=== PATIENT | female | born 1985 | race Caucasian/White ===

== ENCOUNTER 2020-10-16 13:27 | Emergency (ER) | payer OTHER, SELFPAY ==
[2020-10-16 13:29] VITALS: BP 141/84; PULSE 74; RESP 20; TEMP 37; O2SAT 100
--- NOTE | 2020-10-16 16:12 | ED_ITS ---
HPI - Skin/Abscess/Foreign Bdy General Chief complaint: Skin/Abscess/Foreign Body Stated complaint: cyst Time Seen by Provider: 10/16/20 16:06 Source: patient Mode of arrival: Ambulatory Limitations: no limitations History of Present Illness HPI narrative: 35-year-old female comes emergency department with complaint of swelling and pain on the left labia. She believes she is developing a lung gland cyst/infection. She had this once before 13 years ago was seen in the emergency department in [facility] and had drainage with a catheter placed or marsupialization. Patient says since then she has not had issues. She has developed increasing pain, some swelling but does not feel a discrete area that once to drain. But she states she came in because she does not wish to recheck that point again. She denies fevers, she denies any chest pain, shortness of breath, cold cough congestion. No nausea vomiting or abdominal pain. No issues with bowel movements or urination. No vaginal bleeding. She has not had any drainage from the area. She denies any other medical issues. No known drug allergies. She has with primary care a week from now. Related Data Previous Rx's Medication Instructions Recorded sulfamethoxazole-trimethoprim 1 tab PO BID #14 tab 10/16/20 [Bactrim DS] Allergies Allergy/AdvReac Type Severity Reaction Status Date / Time No Known Drug Allergies Allergy Verified 10/16/20 13:33 Review of Systems Review of Systems ROS Unobtainable: All systems reviewed & are unremarkable except as noted in HPI and below Patient History Social History Smoking Status: Never smoker Smoking Status: Never smoker Exam Narrative Exam Narrative: GENERAL: Alert and oriented x three, well-nourished, well- appearing female in mild distress. HEENT: Head normocephalic, atraumatic, EOMI, pupils reactive, face symmetric, moist mucous membranes NECK: Supple, full range of motion CARDIOVASCULAR: Regular rate and rhythm without murmurs, rubs or gallops. RESPIRATORY: Breath sounds equal bilaterally, no wheezes rales or rhonchi. ABDOMEN: Soft, nontender. Normoactive bowel sounds all 4 quadrants. No guarding or rebound, rigidity, no mass : No CVA tenderness Female: externa vaginal exam shows swelling of the left lower labia majora, there is fullness that is visualized but no discrete fluid collection, no discrete area of fluctuance or induration that I am able to palpate. Areas very mildly tender., no vaginal bleeding, no discharge, speculum exam is deferred. EXTREMITIES: Normal range of motion, no clubbing or edema. Neurovascularly intact NEUROLOGICAL: Cranial nerves II through XII grossly intact. Moving all extremities SKIN: Warm, dry, no petechiae, no rashes or lesions. Initial Vital Signs Initial Vital Signs: Vital Signs Temperature 98.6 F 10/16/20 13:29 Pulse Rate 74 10/16/20 13:29 Respiratory Rate 20 10/16/20 13:29 Blood Pressure 141/84 H 10/16/20 13: Pulse Oximetry 100 10/16/20 13:29 Course Vital Signs Vital signs: Vital Signs - 8 hr 10/16/20 13:29 10/16/20 16:38 Temperature 98.6 F 98.6 F Pulse Rate 74 75 Respiratory Rate 20 16 Blood Pressure 141/84 H 148/85 H Pulse Oximetry 100 99 MDM - Skin/Abscess/Foreign Bdy MDM Narrative Medical decision making narrative: 35-year-old female with likely developing Bartholin gland cyst infection. There is no discrete area to easily drain. Then I would hesitate to make an incision or aspirate without some specific area that is clearly ready to be drained. There is full son there is some slight tenderness and erythema in the general area. Plan to continue warm compresses/Sitz baths. Will put on oral antibiotics but encouraged patient to return as I suspect this will ultimately become more distinct area of fluctuance and the need to be drained. Patient expresses understanding she has follow-up in a week with primary care but given referral for cardiopulmonary technician and eeg tech or told to return here if it continues to develop into an abscess. Discharge Plan Departure Patient Disposition: Home Clinical Impression: Bartholin's gland infection Instructions: DI for Bartholin Gland Cyst Activity Restrictions/Additional Instructions: Follow up with primary care at your follow up with your appointment. I do believe you have a Bartholin gland cyst that is likely infected or becoming infected, there is not a clear area to drain at this time. Take antibiotics as prescribed Continue sitz's bath or warm compresses or soaks four times daily If the cyst spontaneously drains you will need follow up but not emergency, if rapidly worsening or seems to have a distinct are to drain you can return to the ER for follow up with front end ui developer for drainage. Return to the ER for fevers, rapidly worsening swelling, pain, discharge, persistent vomiting, abdominal pain, difficulty or painful urination or other new or concerning symptoms. Prescriptions: New sulfamethoxazole-trimethoprim [Bactrim DS] 800-160 mg tablet 1 tab PO BID Qty: 14 RF: 0 Referrals: Jayleen Caballero MD [Physician] -
[2020-10-16 16:38] VITALS: BP 148/85; PULSE 75; RESP 16; TEMP 37; O2SAT 99
== END 2020-10-16 16:38 | disposition home or self-care (01) ==
PROVIDERS: Emergency Provider Emergency Medicine
DX: N75.8 Other diseases of Bartholin's gland (principal)
CPT/HCPCS: 99281

== ENCOUNTER 2020-11-28 12:18 | Emergency (ER) | payer OTHER, SELFPAY ==
[2020-11-28 13:07] VITALS: BP 141/83; PULSE 80; RESP 14; TEMP 36.4; O2SAT 100; BMI 30.7
--- NOTE | 2020-11-28 14:53 | PC.NURSE ---
Left labial apparent barthelon cyst. States has had in the past month w/ drainage but came back @ 0300. No active drainage. No redness. Denies fever / chills.
[2020-11-28] MEDS: LIDOCAINE 1% (PF) 2 ML SUBCUT (17:50)
[2020-11-28] MEDS: IBUPROFEN 400 MG TABLET 800 MG PO (17:53)
--- NOTE | 2020-11-28 17:57 | ED_ITS ---
HPI - Skin/Abscess/Foreign Bdy General Chief complaint: Skin/Abscess/Foreign Body Stated complaint: cyst Time Seen by Provider: 11/28/20 16:57 Source: patient Mode of arrival: Ambulatory Limitations: no limitations History of Present Illness HPI narrative: Patient is a 35-year-old female with history of breath Alinia cyst which actually was drained and work catheter placed 10/30/2020. She said the catheter fell out when it was supposed to and last evening she started noticing increasing swelling again. This morning it is much worse and painful. She denies any fever chills nausea or vomiting. complaint: abscess/boil Related Data Home Medications Medication Instructions Recorded Confirmed norgestimate-ethinyl estradiol 1 tab PO DAILY 10/26/20 10/30/20 0.18 mg/0.215mg/0.25mg-35 mcg(28)tablet Allergies Allergy/AdvReac Type Severity Reaction Status Date / Time No Known Drug Allergies Allergy Verified 10/30/20 14:25 Review of Systems Review of Systems Narrative: GENERAL: Denies chills,fever HEENT: Denies throat pain RESPIRATORY: Denies dyspnea, cough, wheezing CARDIOVASCULAR: Denies chest pain, palpitations GASTROINTESTINAL: Denies nausea, vomiting ROLLER LEVELER OPERATOR: See HPI MUSCULOSKELETAL: Denies extremity pain, injury SKIN: No rash, no laceration, no pruritus NEUROLOGIC: Denies weakness, dizziness, headache, numbness 8 point review of systems is negative except for those stated above and HPI Patient History Family History Mother Depression Mental health problem Grandfather History of heart disease Grandmother History of heart disease Dementia Grandfather Pneumonia Grandmother Cancer Social History Smoking Status: Never smoker Smoking Status: Never smoker alcohol intake frequency: 0-2 drinks per day Substance Use Type: does not use Exam Initial Vital Signs Initial Vital Signs: Vital Signs Temperature 97.6 F 11/28/20 13:07 Pulse Rate 80 11/28/20 13:07 Respiratory Rate 14 11/28/20 13:07 Blood Pressure 141/83 H 11/28/20 13:07 Pulse Oximetry 100 11/28/20 13:07 GENERAL: Well-appearing, well-nourished and in no acute distress. CARDIOVASCULAR: peripheral pulses in tact, cap refill <2 sec RESPIRATORY: No respiratory distress, speaks in full sentences without difficulty ROLLER LEVELER OPERATOR: Normal external vaginal Left-sided proximal knee and cyst EXTREMITIES: Normal range of motion, no clubbing or edema. Neurovascularly intact NEUROLOGICAL: Cranial nerves II through XII grossly intact. Normal gait and speech. SKIN: Warm, dry, no petechiae, no rashes or lesions. Procedures Abscess I/D I&D #1: Site: bartholin's gland Local Anesthetic: lidocaine 1% Amount of anesthesia used (mL): 2 Technique: incised with #11 blade Amount of fluid expressed (mL): 10 Irrigation: No Packing used?: Word catheter Complications: pain and bleeding Course Orders Ordered: ED Orders 11/28/20 17:48 Abscess Culture Stat Discontinued Medications Ibuprofen (Ibuprofen 400 Mg Tablet) 800 mg PO NOW ONE Stop: 11/28/20 17:52 Last Admin: 11/28/20 17:53 Dose: 800 mg Documented by: JAMIA Lidocaine HCl (Lidocaine 1% (Pf)) 2 ml SUBCUT NOW ONE Stop: 11/28/20 17:04 Last Admin: 11/28/20 17:50 Dose: 2 ml Documented by: JAMIA Vital Signs Vital signs: Vital Signs - 8 hr 11/28/20 13:07 11/28/20 18:18 Temperature 97.6 F Pulse Rate 80 93 H Respiratory Rate 14 16 Blood Pressure 141/83 H Pulse Oximetry 100 95 MDM - Skin/Abscess/Foreign Bdy MDM Narrative Medical decision making narrative: Culture is pending. Patient tolerated procedure extremely well. Word catheter placed. She has had 1 in the past she is aware of how to take care of it and she has channel manager to follow. Discharge Plan Departure Patient Disposition: Home Clinical Impression: Bartholin's gland cyst Instructions: Bartholin Gland Cyst Activity Restrictions/Additional Instructions: *You have been diagnosed with Bartholin cyst of left side *What to do: Have catheter removed in 2-[address] Ferris. Keep area clean and dry. At this time no antibiotics indicated culture is pending *Continue to take medications as directed Ibuprofen 800 mg every 8 hours if needed for [id number] pain *Follow up with your primary care provider in 2-3 days *Return to ER if you should have increasing swelling, pain fever or any new, worsening or concerning symptoms Prescriptions: No Action norgestimate-ethinyl estradiol [Tri-Sprintec (28)] 0.18/0.215/0.25 mg-35 mcg (28) tablet 1 tab PO DAILY RF: 0 Referrals: Louann Ferris MD [Physician] - Silke Flynn ARNP [Primary Care Provider] -
[2020-11-28 18:18] VITALS: PULSE 93; RESP 16; O2SAT 95
== END 2020-11-28 18:17 | disposition home or self-care (01) ==
PROVIDERS: Emergency Provider Emergency Medicine; PCP Registered Nurse
DX: N75.0 Cyst of Bartholin's gland (principal)
CPT/HCPCS: 10060; 87070; 87075; 87077; 87186; 87205; 99283